=== PATIENT | female | born 1935 | race Caucasian/White ===

== ENCOUNTER 2017-11-15 14:42 | Observation (INO) ==
[2017-11-15 15:28] LABS: Hematocrit 37.4 % (37.0-47.0); Hemoglobin 12.3 gm/dL (12.5-16.0); Mean Cell Volume 94.4 fl (78-100); Mean Corpuscular Hemoglobin 31.1 pg (27-31); Mean Corpuscular Hgb Conc 32.9 g/dl (32-36); Mean Platelet Volume 9.9 fl (6.0-9.5); Neutrophil # 7.3 K/mm3 (1.3-6.0); Neutrophil % 53.3 % (42-75.0); Platelet Count 307 K/mm3 (150-450); Red Blood Count 3.96 M/mm3 (4.2-5.4); Red Cell Distribution Width 12.9 % (11.5-14.0); White Blood Count 13.7 K/mm3 (4.0-10.5)
[2017-11-15 15:36] LABS: ALT 24 U/L (19-67); AST 21 U/L (0-48); Albumin * 3.2 gm/dl (3.4-5.0); Alkaline Phosphatase * 123 U/L (50-170); Anion Gap 14.5 mmol/L (6.8-13.8); BUN/Creatinine Ratio 14.2 (9.0-21.6); Bilirubin, Total 0.4 mg/dL (0.0-1.1); Blood Urea Nitrogen 18 mg/dL (3-23); Ca. Corrected For Albumin 9.5 mg/dL (8.4-10.2); Calcium * 9.2 mg/dL (7.9-10.9); Carbon Dioxide 22.2 mmol/L (24-32.6); Chloride 105 mmol/L (97-106); Glucose * 86 mg/dL (70-110); Potassium 3.7 mmol/L (3.4-4.6); Sodium 138 mmol/L (132-142); Total Protein 7.3 gm/dL (6.2-8.2); Troponin I Less than 0.017 ng/ml (0.00-0.10)
[2017-11-15] MEDS ORDERED: LORazepam 2 MG/ML DISP.SYRIN ONE (15:49)
[2017-11-15] MEDS ORDERED: LORazepam 2 MG/ML DISP.SYRIN IV ONE (15:54)
--- NOTE | 2017-11-15 15:59 | ERNOTE ---
Neuro HPI ER Record Presenting Symptoms: confusion Time Seen by Provider: 11/15/17 14:47 Source: other Exam Limitations: clinical condition Immunizations: IMMUNIZATION HX Immunizations Up to Date unknown Allergies/Adverse Reactions: Allergies Allergy/AdvReac Type Severity Reaction Status Date / Time Unobtainable Allergy Unverified 11/15/17 14:54 - History of Present Illness Narrative: Patient is brought in by a family friend who provides the history. Patient had a CVA last year and has had difficulty finding words since Today they were getting ready to have dinner when the friend noticed that the patient was acting confused, friend thought he right hand was moving unusually Review of Systems - Narrative Narrative: unable to obtain details - Patient's Past Medical History Patient History - Medical: History Unknown, Diabetes Type 2 Patient History - Cardiac/Respiratory: History Unknown, CVA/Stroke Patient History - Cancer: History Unknown Patient History - Surgical Procedures: Noncontributory Patient History - Other: None LMP (females 10-50): Menopausal - Social History Living Situations: home Psych History: No pertinent hx - Immunizations Immunizations Up to Date: - unknown Physical Exam - Physical Exam General Appearance: Present: wd/wn, alert, no apparent distress Head Exam: Present: normal inspection, no evidence of injury Eye Exam: Normal inspection: bilateral Respiratory: Present: no respiratory distress, normal breath sounds, lungs clear Cardiovascular/Chest: Present: regular rate, rhythm, no murmur Gastrointestinal/Abdominal: Present: normal bowel sounds, nontender, nondistended, soft Neurological Exam: Present: alert, other - talking but not appropiately, not answering questions, moves all extremities, equal smile Skin Exam: Present: normal color, warm/dry Kelsi Coma Scale - Assess Eye Opening: Spontaneous Motor: Localizes to Pain Verbal: Confused - Total Coma Scale Total: 13 ED Progress - Results and Orders Patient's Lab Results:: I have reviewed the patient's lab results. - Vital Signs Patient's Vital Signs:: I have reviewed the patient's vital signs. Vital Signs: Vital Signs 11/15/17 11/15/17 14:47 15:33 Temperature 36.8 C Pulse Rate 88 84 Respiratory 15 26 H Rate Blood Pressure 198/78 148/71 O2 Sat by Pulse 96 Oximetry - EKG EKG: NSR, nonspecific ST T wave changes, other - PVCs, no acute changes EKG read: Interp. by me - X-Ray X-Ray #1 X-Ray: chest - questionable left lower lobe pneumonia Interpretation: Reviewed by me - CT/Ultrasound CT/Ultrasound Narrative: CT head: old stroke no acute changes - Progress/Reassessment Chief Complaint: Altered Mental Status Progress Note-Subjective: 11/15/17 15:59 patient had seizure like activity involving mainly her right arm lasting about 3 minutes, resolved after receiving ativan 11/15/17 16:48 patient alert, talking, but doesn't make sense not follow commands 11/15/17 16:53 discussed with son, he would prefer to have his mother at [facility], discussed that most likely insurance wouldn't pay for ambulance transfer, son agreed to admission here 11/15/17 17:00 PSI 100, class IV 11/15/17 17:[address] Douglass,okay to admit, get inpatient MRI order procalcitonin, if negative hold off on antibiotic as pneumonia is questionable Departure Clinical Impression: Partial seizure, Confusion - Departure Disposition: Still a patient Condition: Stable
[2017-11-15 16:09] LABS: Urine Bilirubin Negative (NEGATIVE); Urine Blood Negative /ul (NEGATIVE); Urine Ketone Negative (NEGATIVE); Urine Nitrite Negative (NEGATIVE); Urine Protein Negative (NEGATIVE); Urine Specific Gravity <=1.005 SP.GR. (1.005-1.010); Urine Urobilinogen Normal (NORMAL)
[2017-11-15 16:41] LABS: Urine Appearance Clear (CLEAR); Urine Bacteria None Seen; Urine Color Yellow; Urine RBC None Seen /hpf (0-5); Urine WBC None Seen /hpf (0-5)
[2017-11-15] MEDS ORDERED: ACETAMINOPHEN 325 MG TABLET PO PRN (20:14)
--- NOTE | 2017-11-15 20:16 | HP ---
Chief Complaint - Chief Complaint Date of Service: 11/15/17 Time of Service: 20:16 Chief Complaint: ' Confusion, talking funny'. Source of HPI- Pt; unreliable, ERP report. Pt's son- Sae History of Present Illness: Mrs. Cherry is a 82-yr-old [place] pt with a PMH of: Anemia, Anxiety, Bojorquez's Esophagus, CVA, DM II, HTN, HLD, Hypothyroidism, GERD & TIAs. History is unobtainable from the pt due to inability to focus in aswering questions, is very restless and unaware of current events. Son Sae, was reached via the phone. He states that pt lives with a female friend and was brought to the Hospital due to "acting funny" at home. Her friend noticed that she had ' rambling and mumbling speech' and 'whatever she said was not making sense.' Her RT hand was reportedly moving unusually. Sae states that the patient has been hospitalized before for TIA and that she suffered a major stroke in May of 2017. He states that she recovered fully with the only deficit being difficulty findings words at times, but otherwise, she underwent Rehabilitation therapy at the [facility]. He states that everything has been fine physically with Mrs. Cherry. While awaiting evaluation at the ED, it's reported that she had another episode of involuntary RT hand movement that lasted 3 minutes and halted with the administration of IV Ativan. She was alert during this episode, talked, but speech was unclear and did not make sense. She had WBC of 13,700 otherwise all other labs on CBC, BMP, Troponin and UA were unremarkable. EKG showed NSR. The CXR showed questionable LLL opacity. The Head CT showed old stroke in the left occipital/posterior parietal/Posterior/ temporal lobe regions. She will be admitted for further neurological evaluation. - Patient's Past Medical History Patient History - Medical: History Unknown, Anemia, Anxiety, Diabetes Type 2, Hypothyroidism, Osteoarthritis Patient History - Cardiac/Respiratory: History Unknown, CVA/Stroke, Hypertension , Hyperlipidemia Patient History - Cancer: History Unknown Patient History - Surgical Procedures: Noncontributory, Appendectomy, Colonoscopy, EGD, Total Hip Replacement - rt, Total Knee Replacement - bilat., Tubal Ligation Patient History - Other: None LMP (females 10-50): Menopausal - Family History Mother Family History - Medical: History Unknown Family History - Cardiac/Respiratory: History Unknown Family History - Cancer: History Unknown Father Family History - Medical: History Unknown Family History - Cardiac/Respiratory: History Unknown Family History - Cancer: History Unknown - Social History Living Situations: home Psych History: No pertinent hx Smoking Status: Never smoker Alcohol Use: none Drug Use: none - Immunizations Immunizations Up to Date: - unknown Review Of Systems (GEN) - Review of Systems Additional Comments: ROS unobtainable due to AMS. Allergies/Adverse Reactions: Allergies Allergy/AdvReac Type Severity Reaction Status Date / Time atenolol Allergy Unknown Verified 11/15/17 18:50 clonidine Allergy Unknown Verified 11/15/17 18:50 codeine Allergy Unknown Verified 11/15/17 18:50 morphine Allergy Unknown Verified 11/15/17 18:50 oxycodone AdvReac Mild other-hallu Verified 11/15/17 18:50 cination Home Medications: HOME MEDICATIONS Acetaminophen 650 mg PO Q6H PRN 11/15/17 [Last Taken Unknown] Aspirin [Aspirin Chewable] 81 mg PO DAILY 11/15/17 [Last Taken Unknown] Atorvastatin Calcium 40 mg PO DAILY 11/15/17 [Last Taken Unknown] Calcium Carbonate [Tums Ultra] 400 mg PO PRN PRN 11/15/17 [Last Taken Unknown] Clopidogrel Bisulfate [Plavix] 75 mg PO DAILY 11/15/17 [Last Taken Unknown] Glimepiride [Amaryl] 2 mg PO DAILY 11/15/17 [Last Taken Unknown] Levothyroxine Sodium [Synthroid] 112 mcg PO DAILY 11/15/17 [Last Taken Unknown] Liraglutide [Victoza 2-Sesar] 0.2 ml SQ DAILY 11/15/17 [Last Taken Unknown] Oxybutynin Chloride [Ditropan] 5 mg PO DAILY 11/15/17 [Last Taken Unknown] Ranitidine HCl [Acid Maintenance Fitter] 150 mg PO BID 11/15/17 [Last Taken Unknown] Sennosides/Docusate Sodium [Senokot-S] 2 tab PO DAILY 11/15/17 [Last Taken Unknown] Exam - Exam Vital Signs: Vital Signs - Last Taken Temp 36.8 C 11/15/17 14:47 Pulse 85 11/15/17 17:05 Resp 27 H 11/15/17 17:05 BP 162/67 11/15/17 17:05 Pulse Ox 99 11/15/17 17:05 Constitutional: Present: Alert - to self only., Mild distress, Elderly ENT Exam: Present: normal ENT inspection Eye Exam: bilateral eye: normal inspection, PERRL Neck: Present: non-tender, full range of motion Back Exam: Present: normal inspection Breasts: Present: Exam deferred Respiratory: Present: no accessory muscle use, No rales, No wheezing Cardiovascular/Chest: Present: systolic murmur Abdomen: Present: Normal bowel sounds, soft, nontender, obese /Rectal: Present: Exam deferred Extremity: Present: normal range of motion, non-tender, normal inspection Skin Exam: Present: warm/dry, no cyanosis Lymphatic: Present: no adenopathy Neurologic: Present: no motor/sensory deficits, alert Appearance: Present: impaired recent memory, impaired remote memory Eye contact: Present: cooperative, compulsive Thoughts: Present: incoherent Diagnostic Studies: Laboratory Results WBC 13.7 K/mm3 (4.0-10.5) H 11/15/17 15:17 RBC 3.96 M/mm3 (4.2-5.4) L 11/15/17 15:17 Hgb 12.3 gm/dL (12.5-16.0) L 11/15/17 15:17 Hct 37.4 % (37.0-47.0) 11/15/17 15:17 MCV 94.4 fl (78-100) 11/15/17 15:17 MCH 31.1 pg (27-31) H 11/15/17 15:17 MCHC 32.9 g/dl (32-36) 11/15/17 15:17 RDW 12.9 % (11.5-14.0) 11/15/17 15:17 Plt Count 307 K/mm3 (150-450) 11/15/17 15:17 MPV 9.9 fl (6.0-9.5) H 11/15/17 15:17 Immature Gran % (Auto) 0.30 % (0.001-0.429) 11/15/17 15:17 Immature Gran # (Auto) 0.04 K/mm3 (0.000-0.0310) H 11/15/17 15:17 Neutrophils % 53.3 % (42-75.0) 11/15/17 15:17 Lymphocytes % 35.9 % (20-51) 11/15/17 15:17 Monocytes % 7.9 % (0.0-9) 11/15/17 15:17 Eosinophils % 2.0 % (0.0-3.0) 11/15/17 15:17 Basophils % 0.6 % (0.0-1.0) 11/15/17 15:17 Nucleated RBC % 0.0 k/mm3 (0-1) 11/15/17 15:17 Neutrophils # 7.3 K/mm3 (1.3-6.0) H 11/15/17 15:17 Lymphocytes # 4.92 k/mm3 (1.5-3.5) H 11/15/17 15:17 Monocytes # 1.1 k/mm3 (0.0-1.0) H 11/15/17 15:17 Eosinophils # 0.3 k/mm3 (0.0-0.7) 11/15/17 15:17 Absolute Basophils 0.1 k/mm3 (0.0-0.1) 11/15/17 15:17 Sodium 138 mmol/L (132-142) 11/15/17 15:17 Plasma Sodium 138 mmol/L (130-142) 11/15/17 15:17 Potassium 3.7 mmol/L (3.4-4.6) 11/15/17 15:17 Chloride 105 mmol/L (97-106) 11/15/17 15:17 Carbon Dioxide 22.2 mmol/L (24-32.6) L 11/15/17 15:17 Anion Gap 14.5 mmol/L (6.8-13.8) H 11/15/17 15:17 BUN 18 mg/dL (3-23) 11/15/17 15:17 Creatinine 1.27 mg/dL (0.4-1.4) 11/15/17 15:17 Est GFR (Non-Af Amer) 43 mL/min (60-130) L 11/15/17 15:17 BUN/Creatinine Ratio 14.2 (9.0-21.6) 11/15/17 15:17 Random Glucose 86 mg/dL (70-110) 11/15/17 15:17 Calcium 9.2 mg/dL (7.9-10.9) 11/15/17 15:17 Calcium Adj for Albumin 9.5 mg/dL (8.4-10.2) 11/15/17 15:17 Total Bilirubin 0.4 mg/dL (0.0-1.1) 11/15/17 15:17 AST 21 U/L (0-48) 11/15/17 15:17 ALT 24 U/L (19-67) 11/15/17 15:17 Alkaline Phosphatase 123 U/L (50-170) 11/15/17 15:17 Troponin I Less than 0.017 ng/ml (0.00-0.10) 11/15/17 15:17 Total Protein 7.3 gm/dL (6.2-8.2) 11/15/17 15:17 Albumin 3.2 gm/dl (3.4-5.0) L 11/15/17 15:17 Procalcitonin 0.05 ng/mL (0.05-0.50) 11/15/17 14:14 Urine Color Yellow 11/15/17 16:03 Urine Appearance Clear (CLEAR) 11/15/17 16:03 Urine pH 6.0 pH (5.0-7.0) 11/15/17 16:03 Ur Specific [place] <=1.005 SP.GR. (1.005-1.010) 11/15/17 16:03 Urine Protein Negative mg/dL (NEGATIVE) 11/15/17 16:03 Urine Glucose (UA) Negative mg/dL (NEGATIVE) 11/15/17 16:03 Urine Ketones Negative mg/dL (NEGATIVE) 11/15/17 16:03 Urine Blood Negative /ul (NEGATIVE) 11/15/17 16:03 Urine Nitrate Negative (NEGATIVE) 11/15/17 16:03 Urine Bilirubin Negative mg/dl (NEGATIVE) 11/15/17 16:03 Urine Urobilinogen Normal EU/dl (NORMAL) 11/15/17 16:03 Ur Leukocyte Esterase Negative /ul (NEGATIVE) 11/15/17 16:03 Urine RBC None seen /hpf (0-5) 11/15/17 16:03 Urine WBC None seen /hpf (0-5) 11/15/17 16:03 Ur Epithelial Cells Trace /hpf (0-5) 11/15/17 16:03 Urine Bacteria None seen (NONE) 11/15/17 16:03 Urine Culture Comments Culture to follow 11/15/17 16:03 Assessment/Plan - Assessment/Plan (1) TIA (transient ischemic attack) Assessment: Pt symptoms of unclear speech, mental confusion and involuntary RT hand movement could suggest TIA,Other differential to be considered are Ischemic stroke or seizures. CT of the head showed an old Stroke but will need MRI of the Brain/MRA. May also need EEG. Will cover with Keppra until seizures are ruled out. Nursing will monitor neuro checks and will be placed on telemetry monitoring. Problem: Acute (2) Altered mental status Assessment: ? if its due to CVA, Infection- Pneumonia is likely, but CXR lacks clarity and may need repeated. UA was negative of infection. Will check Urine Toxicology. Problem: Acute Qualifiers: Altered mental status type: transient alteration of awareness Qualified Code(s): R40.4 - Transient alteration of awareness (3) CVA (cerebral vascular accident) Assessment: On Aspirin, Lipitor, and Plavix. Pt follows-up with Neurology at the [facility]. Problem: Chronic (4) Diabetes Assessment: Accucheck ACHS, Consistent Carb diet, On Glimepiride and Victoza. Problem: Chronic Qualifiers: Diabetes mellitus type: type 2 (5) GERD (gastroesophageal reflux disease) Assessment: Stable- Pepcid. Problem: Chronic
[2017-11-15] MEDS ORDERED: LORazepam 2 MG/ML DISP.SYRIN IV PRN (20:21)
[2017-11-15] MEDS: FAMOTIDINE 20 MG TABLET PO SCH (22:09)
[2017-11-16 02:21] LABS: Cocaine Ur Negative (NEGATIVE); Urine Barbiturate Negative (NEGATIVE); Urine Benzodiazepines Negative (NEGATIVE); Urine Opiates Negative (NEGATIVE); Urine PCP Negative (NEGATIVE); Urine THC Negative (NEGATIVE)
[2017-11-16 06:01] LABS: Hematocrit 35.5 % (37.0-47.0); Hemoglobin 11.4 gm/dL (12.5-16.0); Mean Cell Volume 96.2 fl (78-100); Mean Corpuscular Hemoglobin 30.9 pg (27-31); Mean Corpuscular Hgb Conc 32.1 g/dl (32-36); Mean Platelet Volume 9.9 fl (6.0-9.5); Neutrophil # 4.5 K/mm3 (1.3-6.0); Neutrophil % 51.7 % (42-75.0); Platelet Count 266 K/mm3 (150-450); Red Blood Count 3.69 M/mm3 (4.2-5.4); Red Cell Distribution Width 13.1 % (11.5-14.0); White Blood Count 8.7 K/mm3 (4.0-10.5)
--- NOTE | 2017-11-16 06:01 | PN ---
Subjective - Date and Time Seen Date: 11/16/17 Time: 06:00 Subjective Narrative: Pt examined this morning. Is alert and oriented to self only. Does not comprehend commands. No other acute events overnight. Objective - Vitals Vitals: Last Vital Signs Temp 36.9 C 11/16/17 02:47 Pulse 83 11/16/17 02:47 Resp 18 11/16/17 02:47 BP 145/52 11/16/17 02:47 Pulse Ox 95 11/16/17 02:47 - Exam Constitutional: Present: Alert, No distress ENT Exam: Present: normal ENT inspection Neck: Present: non-tender, full range of motion, supple Breasts: Present: Exam deferred Respiratory: Present: No rales, No wheezing Cardiovascular/Chest: Present: normal peripheral pulses, systolic murmur Abdomen: Present: Normal bowel sounds, soft, nontender /Rectal: Present: Exam deferred Extremity: Present: normal range of motion, non-tender, normal inspection, no pedal edema Skin Exam: Present: warm/dry, no cyanosis Lymphatic: Present: no adenopathy Neurologic: Present: no motor/sensory deficits, alert. Absent: abnormal gait, aphasia, facial droop, dizzy/light-headedness Appearance: Present: impaired recent memory, impaired remote memory Eye contact: Present: compulsive Thoughts: Present: no apparent hallucination, incoherent Assessment/Plan - Problems/Diagnosis (1) TIA (transient ischemic attack) Problem: Acute Narrative: Pt symptoms of unclear speech, mental confusion and involuntary RT hand movement could suggest TIA,Other differential to be considered are Ischemic stroke or seizures. CT of the head showed an old Stroke but will need MRI of the Brain/MRA. May also need EEG. Will cover with Keppra until seizures are ruled out. Nursing will monitor neuro checks and will be placed on telemetry monitoring. (2) Altered mental status Problem: Acute Qualifiers: Altered mental status type: transient alteration of awareness Qualified Code(s): R40.4 - Transient alteration of awareness Narrative: ? if its due to CVA, Infection- Pneumonia is likely, but CXR lacks clarity and may need repeated. UA was negative of infection. Will check Urine Toxicology. (3) CVA (cerebral vascular accident) Problem: Chronic Narrative: On Aspirin, Lipitor, and Plavix. Pt follows-up with Neurology at the [facility]. (4) Diabetes Problem: Chronic Qualifiers: Diabetes mellitus type: type 2 Narrative: Accucheck ACHS, Consistent Carb diet, On Glimepiride and Victoza. (5) GERD (gastroesophageal reflux disease) Problem: Chronic Narrative: Stable- Pepcid.
[2017-11-16 06:10] LABS: Anion Gap 10.4 mmol/L (6.8-13.8); BUN/Creatinine Ratio 11.8 (9.0-21.6); Carbon Dioxide 25.3 mmol/L (24-32.6); Estimated Creat Clear 27.9; Potassium 3.7 mmol/L (3.4-4.6)
[2017-11-16] MEDS ORDERED: LEVOTHYROXINE SODIUM 112 MCG TABLET PO SCH (07:00)
[2017-11-16] MEDS: FAMOTIDINE 20 MG TABLET PO SCH (08:36)
[2017-11-16] MEDS ORDERED: CLOPIDOGREL BISULFATE 75 MG TABLET PO SCH (09:00)
[2017-11-16] MEDS ORDERED: SENNOSIDES/DOCUSATE SODIUM 1 TAB TABLET PO SCH (09:00)
[2017-11-16] MEDS ORDERED: LIRAGLUTIDE SQ SCH (09:00)
[2017-11-16] MEDS ORDERED: ATORVASTATIN CALCIUM 40 MG TABLET PO SCH (09:00)
[2017-11-16] MEDS ORDERED: OXYBUTYNIN CHLORIDE 5 MG TABLET PO SCH (09:00)
[2017-11-16] MEDS ORDERED: ASPIRIN 81 MG TAB.CHEW PO SCH (09:00)
[2017-11-16] MEDS ORDERED: GLIMEPIRIDE 2 MG TABLET PO SCH (09:00)
[2017-11-16] MEDS ORDERED: INSULIN LISPRO 100 UNITS/ML VIAL SC SCH (12:00)
--- NOTE | 2017-11-16 13:51 | DS ---
(1) Partial seizure Problem: Acute Description of Stay: HOSPITAL STAY: The patient was admitted for acute encephalopathy which resolved within 24 hours and her son felt she was back to baseline and was stable for discharge. I believe that the patient's presentation was secondary to partial seizures with the focus of the seizures coming from her recent stroke in the fall of 2016. Thus, the patient was started on keppra and she should follow-up with her PCP within 1 week and would recommend referral to neurology at that time for further evaluation and management. Procedures Performed: none Discharge Location: Home Disposition: Home self-care Condition: Stable Discharge Activity: Activity as tolerated Discharge Diet: Consistent carbs, Resume usual diet Problem Oriented Discharge Instructions to Patient/Family: Seizure, Adult, Easy -to-Read Additional Patient Instructions (free text): -Follow-up with PCP within 1 week. Keep appointment with Dr. Donovan 11/23 at 4:00. -Follow-up/referral to neurology within 1-2 weeks Follow up with Neurology 12/01 at 10:00 in [facility]. Prescriptions (Any new or edited meds): levETIRAcetam [Keppra] 500 mg PO BID #60 tablet Complete Home Medications List: Complete Home Medication List: Acetaminophen 650 mg PO Q6H PRN 11/15/17 Aspirin [Aspirin Chewable] 81 mg PO DAILY 11/15/17 Atorvastatin Calcium 40 mg PO DAILY 11/15/17 Calcium Carbonate [Tums Ultra] 400 mg PO PRN PRN 11/15/17 Clopidogrel Bisulfate [Plavix] 75 mg PO DAILY 11/15/17 Glimepiride [Amaryl] 2 mg PO DAILY 11/15/17 Levothyroxine Sodium [Synthroid] 112 mcg PO DAILY 11/15/17 Liraglutide [Victoza 2-Sesar] 0.2 ml SQ DAILY 11/15/17 Oxybutynin Chloride [Ditropan] 5 mg PO DAILY 11/15/17 Ranitidine HCl [Acid Reconstructive Surgeon] 150 mg PO BID 11/15/17 Sennosides/Docusate Sodium [Senokot-S] 2 tab PO DAILY 11/15/17 levETIRAcetam [Keppra] 500 mg PO BID #60 tablet 11/16/17
[2017-11-16 15:13] VITALS: BP 155/64
[2017-11-16] MEDS ORDERED: ROSUVASTATIN CALCIUM 20 MG TABLET PO SCH (21:00)
== END 2017-11-16 15:20 | disposition home or self-care (01) ==
LOC: ER 14:42 → MS 17:12
PROVIDERS: ADMIT Internal Medicine; ATTEND Internal Medicine
DX: E11.9 Type 2 diabetes mellitus without complications; R41.82 Altered mental status, unspecified; E03.9 Hypothyroidism, unspecified; G45.9 Transient cerebral ischemic attack, unspecified; E78.5 Hyperlipidemia, unspecified; I10 Essential (primary) hypertension; Z68.41 Body mass index [BMI] 40.0-44.9, adult; G40.109 Localization-related (focal) (partial) symptomatic epilepsy and epileptic syndromes with simple partial seizures, not intractable, without status epilepticus; K21.9 Gastro-esophageal reflux disease without esophagitis
CPT/HCPCS: 36415; 70450; 71010; 71045; 80048; 80053; 80307; 81001; 84145; 84484; 85025; 87040; 87086; 93005; 96365; 96366; 99285; G0378; G0479